=== PATIENT | female | born 1960 | race Caucasian/White ===

== ENCOUNTER → 2016-12-26 | Outpatient (CLI) | payer OTHER ==
[~2016-12-26] MED LIST: ACET-1138 PO; ASPEC81 PO; BTLAI INJ; CLB200 PO; HYDROCHLOROTHIAZIDE PO; MULT-506 PO; PROPRANOLOL PO; RIZA10TA18 PO; RXC5 PO; SIMV20TA2 PO
== END | disposition home or self-care (01) ==
LOC: C.PATHSPEC 17:39
PROVIDERS: ATTEND Orthopaedic Surgery
DX: M12.262 Villonodular synovitis (pigmented), left knee (principal); M23.42 Loose body in knee, left knee

== ENCOUNTER 2019-04-22 08:18 | Inpatient (IN) ==
--- NOTE | 2019-03-23 15:43 | PAT Medication Instructions ---
Medication Instructions Date of Service March 23, 2019 Home Medications acetaminophen [Tylenol Extra Strength] 1,500 mg PO DAILY PRN aspirin [Aspir-81] 81 mg PO QAM ibuprofen 600 mg PO Q6H PRN lisinopril 30 mg PO QAM melatonin 3 mg PO HS multivitamin 1 tab PO QAM omeprazole 20 mg PO QAM onabotulinumtoxinA [Botox] 100 unit IM UD rizatriptan 10 mg PO UD simvastatin 40 mg PO HS Continue as directed onabotulinumtoxinA [Botox] 100 unit IM UD rizatriptan 10 mg PO UD ASK your surgeon for instructions ibuprofen 600 mg PO Q6H PRN DO NOT take the morning of surgery lisinopril 30 mg PO QAM multivitamin 1 tab PO QAM Take morning of surgery With a small sip of water, OTHERWISE NOTHING TO EAT OR DRINK AFTER MIDNIGHT: acetaminophen [Tylenol Extra Strength] 1,500 mg PO DAILY PRN (okay to take up to 4 hours prior to surgery if needed) omeprazole 20 mg PO QAM Take evening before surgery acetaminophen [Tylenol Extra Strength] 1,500 mg PO DAILY PRN (if needed) melatonin 3 mg PO HS simvastatin 40 mg PO HS Other Notes If you have any questions please call us at [phone] or [phone] or [phone] or [phone]
--- NOTE | 2019-03-24 11:54 | Anesthesiology Consultation ---
Date of Service March 24, 2019 Assessment & Plan (1) Encounter for pre-operative examination: Chart Review Chart Review: Pending: Refer to Additional Notes / Consult section (pending preop testing (labs)) and Patient seen in Pre Admission Testing Teaching & Discussion Pre-Anesthesia Teaching/Discussion Notes: Instructed NPO after midnight before surgery,except medications with 15 cc of water. Medication instructions provided according to the PAT guidelines. History Surgery Operation Date: 04/22/19 08:15 Proposed Procedures p Left Total Knee Arthroplasty - Perez Guadalupe MD Height/Weight Height: 5 ft 6.25 in Weight: 102 kg Allergies Allergy/AdvReac Type Severity Reaction Status Date / Time prednisone AdvReac Mild "emotional" Verified 03/19/19 08:35 Medications Home Medications Medication Instructions Recorded Confirmed Last Taken acetaminophen [Tylenol Extra 1,500 mg PO DAILY PRN 03/19/19 03/19/19 Unknown Strength] aspirin [Aspir-81] 81 mg PO QAM 03/19/19 03/19/19 Unknown ibuprofen 600 mg PO Q6H PRN 03/19/19 03/19/19 Unknown lisinopril 30 mg PO QAM 03/19/19 03/19/19 Unknown melatonin 3 mg PO HS 03/19/19 03/19/19 Unknown multivitamin 1 tab PO QAM 03/19/19 03/19/19 Unknown omeprazole 20 mg PO QAM 03/19/19 03/19/19 Unknown onabotulinumtoxinA [Botox] 100 unit IM UD 03/19/19 03/19/19 Unknown rizatriptan 10 mg PO UD 03/19/19 03/19/19 Unknown simvastatin 40 mg PO HS 03/19/19 03/19/19 Unknown Past Medical History Medical History Depression HX GERD (gastroesophageal reflux disease) controlled Hyperlipidemia Hypertension Migraine Neck stiffness Obesity Sleep apnea CPAP Exercise / Class Metabolic Activity III < 4 Walking/Shop/Light housework Past Surgical History Surgical History Heel spur LEFT History of bilateral tubal ligation AND RE-ANASTAMOSIS History of colonoscopy History of hysterectomy History of total knee replacement RIGHT Past Anesthesia History No Hx of Anesthesia Complications (except PONV*) and No Family Hx of Anesthesia Complications History of PONV History of PONV and Hx of Motion Sickness Social History Smoking Status: Never smoker Do You Dip or Chew Tobacco: No Hx Alcohol Use: No Hx Substance Use: Yes Review of Systems Reflux controlled. Patient denies chest pain, shortness of breath, cough, wheezing, palpitations. Physical Exam Vital Signs VITALS BP 148/87 (patient states she did not take BP medication yet today) P 72 TEMP 98.3 SP02 97%RA RESP 20 PHYSICAL Full neck and c-spine range of motion. Full TMJ range of motion. TMD 3.5 finger breaths Mallampati Score 2 Dentition: missing molars, upper front left "filling" ? cap Lungs: clear throughout to auscultation Cardiac: regular rate and rhythm, no murmurs noted Spine: normal Carotid arteries: negative bruit Extremities: no edema Testing Electrocardiogram Date: 09/29/18 NSR at 78bpm. Chest X-Ray Date: 09/29/18 Findings: + NAD Stress Test Date: 09/30/18 Type: DSE DSE negative for ischemia. No EKG changes to suggest ischemia. 112% MPHR. Occasional PAC's/PVC's. No significant valvular disease.
[2019-03-24 12:28] LABS: Appearance Urine Clear (Clear); Bilirubin Urine Negative (Negative); Blood Urine Negative (Negative); Color Urine Yellow; Glucose Urine UA Negative (Negative); Ketones Urine Negative (Negative); Leukocyte Esterase Urine Negative (Negative); Nitrite Urine Negative (Negative); Protein Urine Negative (Negative); Specific Gravity Urine 1.018 (1.000-1.030); Urobilinogen Urine Negative (Negative); pH Urine 6.5 (4.5-7.5)
[2019-03-24 12:28] LABS: Basophils # (auto) 0.03 K/uL (0-0.2); Basophils % (auto) 0.6 %; Eosinophils % (auto) 1.8 %; Hematocrit (blood only) 38.1 % (37-47); Hemoglobin 13.2 g/dL (12.0-16.0); Immature Granulocytes # (auto) 0.02 K/uL (0.00-0.02); Immature Granulocytes % (auto) 0.4 %; Lymphocytes # (auto) 1.96 K/uL (1.2-3.4); Mean Corpuscular Hemoglobin 30.3 pg (25-34); Mean Corpuscular Hgb Conc 34.6 g/dL (32-36); Mean Corpuscular Volume 87.4 fL (80-100); Mean Platelet Volume 9.6 fL (7.4-10.4); Monocytes # (auto) 0.31 K/uL (0.11-0.59); Monocytes % (auto) 5.7 %; Neutrophils # (auto) 3.03 K/uL (1.4-6.5); Neutrophils % (auto) 55.5 %; Platelet Count 256 K/uL (130-400); RDW Standard Deviation 41.7 fL (36.4-46.3); Red Blood Count 4.36 M/uL (4.2-5.4); White Blood Count 5.45 K/uL (4.8-10.8)
[2019-03-24 12:40] LABS: INR 0.9 (0.9-1.1); Partial Thromboplastin Time 27.1 Seconds (21.0-31.0); Prothrombin Time 9.6 Seconds (9.0-12.0)
[2019-03-24 13:04] LABS: Estimated Average Glucose 126 mg/dl
[2019-03-24 14:46] LABS: Albumin Level 3.8 gm/dl (3.4-5.0); BUN Creatinine Ratio 15.8 (10-20); Calcium 8.9 mg/dl (8.5-10.1); Creatinine Clr Calc Pharmacy 78.2 ml/min; Est GFR (African American) 76.5; Potassium 4.2 mmol/L (3.5-5.1)
--- NOTE | 2019-04-09 11:47 | History & Physical Report ---
Date of Service April 09, 2019 Assessment & Plan (1) Primary osteoarthritis of left knee: She has ongoing left knee pain. She has failed conservative measures as above. Treatment options were discussed. Risks, benefits and alternatives to surgery including but not limited to infection, DVT, pain, stiffness, need for revision surgery, damage to blood vessels, damage to nerves, PE, , were discussed with the patient and they wish to proceed. Plan will be for left total knee arthroplasty at [facility] on 04/22/19. Will plan on aspirin 81mg BID x 30 days for DVT prophylaxis. Will plan on home health PT upon discharge from the hospital. All questions answered. F/u post operatively. History of Present Illness Chief Complaint: Left knee pain Primary Care Provider: NO PCP Patient is a 58 year old female with PMHx significant for HTN, high cholesterol, JAMES, GERD with longstanding history of left knee pain. Previously has done well right knee replacement. She has failed conservative measures including cortisone injections, visco injections, NSAIDs. Pain is affecting her daily activity. She would like to proceed with left knee replacement. Patient denies headaches, sweats, fevers, chills, double vision, blurred vision, cough, sore throat, dysphagia, chest pain, sob, wheezing, n/v/d/c, numbness, tingling, fatigue, urinary symptoms, mood disorders. ROS positive for left knee pain and stiffness. Allergies Allergy/AdvReac Type Severity Reaction Status Date / Time prednisone AdvReac Mild "emotional" Verified 03/19/19 08:35 Home Medications Home Medications Medication Instructions Recorded Confirmed Type acetaminophen [Tylenol Extra 1,500 mg PO DAILY PRN 03/19/19 03/19/19 History Strength] aspirin [Aspir-81] 81 mg PO QAM 03/19/19 03/19/19 History ibuprofen 600 mg PO Q6H PRN 03/19/19 03/19/19 History lisinopril 30 mg PO QAM 03/19/19 03/19/19 History melatonin 3 mg PO HS 03/19/19 03/19/19 History multivitamin 1 tab PO QAM 03/19/19 03/19/19 History omeprazole 20 mg PO QAM 03/19/19 03/19/19 History onabotulinumtoxinA [Botox] 100 unit IM UD 03/19/19 03/19/19 History rizatriptan 10 mg PO UD 03/19/19 03/19/19 History simvastatin 40 mg PO HS 03/19/19 03/19/19 History Past Med/Surg History Medical History Depression HX GERD (gastroesophageal reflux disease) controlled Hyperlipidemia Hypertension Migraine Neck stiffness Obesity Sleep apnea CPAP Surgical History Heel spur LEFT History of bilateral tubal ligation AND RE-ANASTAMOSIS History of colonoscopy History of hysterectomy History of total knee replacement RIGHT Social History Preferred Language: Lithuanian Communication Ability: Effective Triage Clinician Required: No Beliefs That Will Affect Care: None Current Living Situation: Spouse Other Information That Helps Us Care for You: No Feels Safe at Home: Yes Safety Concerns: Feels Safe At This Time Smoking Status: Never smoker Do You Dip or Chew Tobacco: No ; Second Hand Exposure: Yes (SPOUSE) ; Hx Alcohol Use: No Hx Substance Use: Yes Review of Systems All systems reviewed & are unremarkable except as noted in HPI & below Physical Exam Constitutional: well developed and well nourished; no acute distress Eyes: PERRL, conjunctivae normal, anicteric sclerae ENMT: external ear and nose normal, oropharynx normal Neck: trachea midline, no thyromegaly Respiratory: normal respiratory effort, lungs clear to auscultation Cardiovascular: RRR, no murmur, no edema Musculoskeletal: Left knee-Tenderness medial joint line, ROM 0-130, mild effusion. Crepitus with ROM. Stable to valgus and varus stress. Positive Danyelle's Skin: no rashes, warm and dry Neurologic: patellar DTR's 2+ bilat, sensation intact Psychiatric: A+Ox3, euthymic affect Results & Data Laboratory Results Lab Results 03/24/19 03/24/19 03/24/19 Range/Units 11:20 11:48 11:48 WBC 5.45 (4.8-10.8) K/uL RBC 4.36 (4.2-5.4) M/uL Hgb 13.2 (12.0-16.0) g/dL Hct 38.1 (37-47) % MCV 87.4 (80-100) fL MCH 30.3 (25-34) pg MCHC 34.6 (32-36) g/dL RDW Std Deviation 41.7 (36.4-46.3) fL RDW Coeff of Migue 13.0 (11.5-14.5) % Plt Count 256 (130-400) K/uL MPV 9.6 (7.4-10.4) fL Immature Gran % (Auto) 0.4 % Neut % (Auto) 55.5 % Lymph % (Auto) 36.0 % [place] % (Auto) 5.7 % Eos % (Auto) 1.8 % Baso % (Auto) 0.6 % Immature Gran # (Auto) 0.02 (0.00-0.02) K/uL Neut # (Auto) 3.03 (1.4-6.5) K/uL Lymph # (Auto) 1.96 (1.2-3.4) K/uL [place] # (Auto) 0.31 (0.11-0.59) K/uL Eos # (Auto) 0.10 (0-0.5) K/uL Baso # (Auto) 0.03 (0-0.2) K/uL PT 9.6 (9.0-12.0) Seconds INR 0.9 (0.9-1.1) APTT 27.1 (21.0-31.0) Seconds PTT Ratio 1.0 Sodium (136-145) mmol/L Potassium (3.5-5.1) mmol/L Chloride (98-107) mmol/L Carbon Dioxide (21-32) mmol/L Anion Gap (3-11) BUN (7-18) mg/dl Creatinine (0.6-1.2) mg/dl Est Cr Clr Drug Dosing ml/min Est GFR ( Amer) Est GFR (Non-Af Amer) BUN/Creatinine Ratio (10-20) Glucose (70-99) mg/dl Estimat Average Glucose mg/dl Hemoglobin A1c (4.5-5.6) % Calcium (8.5-10.1) mg/dl Albumin (3.4-5.0) gm/dl Urine Color Yellow Urine Appearance Clear (Clear) Urine pH 6.5 (4.5-7.5) Ur Specific [place] 1.018 (1.000-1.030) Urine Protein Negative (Negative) Urine Glucose (UA) Negative (Negative) Urine Ketones Negative (Negative) Urine Blood Negative (Negative) Urine Nitrite Negative (Negative) Urine Bilirubin Negative (Negative) Urine Urobilinogen Negative (Negative) Ur Leukocyte Esterase Negative (Negative) Blood Type Antibody Screen 03/24/19 03/24/19 03/24/19 Range/Units 11:48 11:48 11:48 WBC (4.8-10.8) K/uL RBC (4.2-5.4) M/uL Hgb (12.0-16.0) g/dL Hct (37-47) % MCV (80-100) fL MCH (25-34) pg MCHC (32-36) g/dL RDW Std Deviation (36.4-46.3) fL RDW Coeff of Migue (11.5-14.5) % Plt Count (130-400) K/uL MPV (7.4-10.4) fL Immature Gran % (Auto) % Neut % (Auto) % Lymph % (Auto) % [place] % (Auto) % Eos % (Auto) % Baso % (Auto) % Immature Gran # (Auto) (0.00-0.02) K/uL Neut # (Auto) (1.4-6.5) K/uL Lymph # (Auto) (1.2-3.4) K/uL [place] # (Auto) (0.11-0.59) K/uL Eos # (Auto) (0-0.5) K/uL Baso # (Auto) (0-0.2) K/uL PT (9.0-12.0) Seconds INR (0.9-1.1) APTT (21.0-31.0) Seconds PTT Ratio Sodium 139 (136-145) mmol/L Potassium 4.2 (3.5-5.1) mmol/L Chloride 104 (98-107) mmol/L Carbon Dioxide 28 (21-32) mmol/L Anion Gap 7.0 (3-11) BUN 15 (7-18) mg/dl Creatinine 0.95 (0.6-1.2) mg/dl Est Cr Clr Drug Dosing 78.2 ml/min Est GFR ( Amer) 76.5 Est GFR (Non-Af Amer) 66.0 BUN/Creatinine Ratio 15.8 (10-20) Glucose 132 H (70-99) mg/dl Estimat Average Glucose 126 mg/dl Hemoglobin A1c 6.0 H (4.5-5.6) % Calcium 8.9 (8.5-10.1) mg/dl Albumin 3.8 (3.4-5.0) gm/dl Urine Color Urine Appearance (Clear) Urine pH (4.5-7.5) Ur Specific [place] (1.000-1.030) Urine Protein (Negative) Urine Glucose (UA) (Negative) Urine Ketones (Negative) Urine Blood (Negative) Urine Nitrite (Negative) Urine Bilirubin (Negative) Urine Urobilinogen (Negative) Ur Leukocyte Esterase (Negative) Blood Type O Positive Antibody Screen NEGATIVE Diagnostic Findings Left knee radiographs: [id number] medial compartment with periarticular osteophyte formation and subchondral sclerosis
[~2019-04-22 08:18] MED LIST changes: -ACET-1138 PO; +ACETAMINOPHEN 500 MG TAB PO SCH; -ASPEC81 PO; -BTLAI INJ; +BUPIVACAINE 0.5 % 5 MG/1 ML PF 10ML VIAL ONE; +CEFAZOLIN 2000MG 2,000 MG/15 ML SYR IV SCH; -CLB200 PO; +CeleBREX 200 MG CAP PO SCH; +FAMOTIDINE 20 MG TAB PO SCH; +GABAPENTIN 600 MG DOSE PO SCH; -HYDROCHLOROTHIAZIDE PO; +LR 500ML BOLUS, THEN 15ML/HR IV SCH; +METOCLOPRAMIDE HCL 10 MG TABLET PO SCH; -MULT-506 PO; +OXYCODONE HCL 10 MG TABCR (OXYCONTIN) PO SCH; -PROPRANOLOL PO; -RIZA10TA18 PO; +ROPIVACAINE 0.5% HCL/PF 150 MG, BUPIVACAINE 0.5% MPF 30 ML, EPINEPHrine 30MG/30ML (OR U... INFIL SCH; +ROPIVACAINE 0.5% HCL/PF 150 MG, BUPIVACAINE 0.5% MPF 30 ML, EPINEPHrine 30MG/30ML (OR U... INSTIL SCH; -RXC5 PO; -SIMV20TA2 PO; +TRANEXAMIC ACID 1,000 MG **IV Intra-op IV SCH; +TRANEXAMIC ACID 1,000 MG **IV Pre-op IV SCH; +dexAMETHasone 4 MG TAB PO SCH
[2019-04-22] MEDS ORDERED: fentaNYL citrate 100 MCG/2 ML VIAL ONE ×2 (09:27→11:27)
[2019-04-22] MEDS ORDERED: MIDAZOLAM HCL 1 MG/ML 2ML VIAL ONE (09:27)
--- NOTE | 2019-04-22 09:35 | History & Physical Bridge Note ---
Date of Service April 22, 2019 History & Physical Bridge Note I have examined the patient, reviewed the History & Physical and in the interval since the performance of the History & Physical I have noted the following changes of clinical significance: no changes noted
[2019-04-22] MEDS ORDERED: fentaNYL citrate 100 MCG/2 ML VIAL IV PRN (09:53)
[2019-04-22] MEDS ORDERED: ONDANSETRON INJ 2 MG/ML 2 ML VIAL IV PRN ×2 (09:53→13:53)
[2019-04-22] MEDS ORDERED: ATROPINE SULFATE 0.1 MG/ML 10ML SYR IV PRN (09:53)
[2019-04-22] MEDS ORDERED: ePHEDrine sulfate 50 MG/ML AMP IV PRN (09:53)
[2019-04-22] MEDS ORDERED: PROPOFOL IV EMULSION 10 MG/ML 20 ML VIAL IV ONE (10:04)
[2019-04-22] MEDS ORDERED: BACITRACIN INJ 50,000 UNIT VIAL ONE (10:28)
--- NOTE | 2019-04-22 12:16 | Operative Report ---
Post Operative Report Pre & Post Diagnosis Operation Date: 04/22/19 10:55 Pre-Op Diagnosis: Osteoarthritis, Left Knee Post-Op Diagnosis: Osteoarthritis, Left Knee I identified the patient and participated in the time-out.: Yes Procedure Operation Date: 04/22/19 10:55 Actual Procedures p Left Total Knee Arthroplasty(Left) - Perez Guadalupe MD Surgeon Perez Guadalupe MD Manager Spring Brayan Parrish PA-C Estimated Blood Loss 20 Findings Consistent with Post-Op Diagnosis Specimens bone and tissue Drains 2 hemovac Anesthesia Type MAC Spinal Regional Complications none Disposition Accompanied Patient To Recovery: No Disposition: Recovery Room Indications The patient is a 58-year-old female with long-standing arthritic change in the left knee. She has failed conservative measures including injection, anti- inflammatories and rehab. She is [id number] medial compartment osteophyte formation of the and from chronic medial tibial plateau. She would like to proceed with total knee replacement. Description of Procedure Risks benefits and alternatives of surgery including but not limited to infection, DVT, pain, stiffness, need for surgery, damage to blood vessels, damage to nerves or risks of anesthesia were discussed with the patient and they wished to proceed. The patient was identified and the laterality was confirmed and marked. They received a preoperative antibiotic as well as a spinal anesthetic and an abductor canal block. A well-padded tourniquet was applied and then the limb was prepped and draped in standard manner with ChloraPrep. The limb was exsanguinated and the tourniquet was inflated. I made a standard anterior incision. I sharply incised the skin then utilized Bovie electrocautery to achieve hemostasis. I made a medial parapatellar arthrotomy and mobilized the patella laterally. I then excised the anterior horns of the medial and lateral meniscus as well as the infrapatellar fat pad. I elevated a portion of the MCL off of the tibia. I then pinned into place a patient-matched distal femoral cutting guide and made my distal femoral resection. I then pinned into place the 5 in 1 femoral cutting guide. I made my anterior, posterior and chamfer cuts. I then excised the cruciates and the remaining portions of the menisci. I then pinned into place a patient- matched tibial cutting guide and made my tibial resection. I then pinned into place the tibial plate a utilizing alignment jon to confirm rotation. I then cut for the post. Utilizing a lamina house visitor and I then removed posterior osteophytes off the femur. I then placed a trial femur into position and cut for the trochlear component. She had significant imbalance being tight on the medial side. I needed to release a portion of the deep MCL. I then sequentially trialed to size the polyethylene until there was good soft tissue balancing and range of motion. I then prepared the patella with a freehand cut utilizing sagittal saw. I sized and drilled for the patella. There was some lateral tracking of the patella a lateral release was required All the trial components were removed. The deep tissues were anesthetized with an ortho mix solution. Then with Simplex HV with gentamicin cement, I cemented my definitive components. Definitive components, Lay and Nephew Irene 2: Femur 5 Tibia 3 Poly 10 Patella 29 oval A betadine soak was performed. A deep drain was placed. The arthrotomy was closed with interrupted #1 Vicryl suture subcutaneous tissue was closed with interrupted 2-0 Vicryl suture. The skin was closed with with kamlesh. An Acticoat and Faith dressing were placed. Sterile dressings were applied. All needle and sponge counts were correct at the end of the procedure patient was transferred to the PACU in stable condition without apparent complication. The PA-C was necessary for assistance with procedure for assistance in posit ioning, prepping, draping, retraction and closure. I attest to the content of the Intraoperative Record and any orders documented therein. Any exceptions are noted below.
--- NOTE | 2019-04-22 13:24 | Anesthesiology Progress Note ---
Date of Service April 22, 2019 Anesthesia Post Procedure Vital Signs Vital Signs: Temp Pulse Pulse Resp BP Pulse Ox 04/22/19 13:15 77 16 124/73 96 04/22/19 13:05 80 16 103/72 98 04/22/19 12:59 99.0 F 86 16 107/61 98 04/22/19 09:23 97.9 F 76 20 168/87 H 96 Transfer of Care Handoff Completed per policy Notes Mental Status: alert / awake / arousable and participated in evaluation Patient Amnestic to Procedure: Yes Nausea / Vomiting: adequately controlled Pain: adequately controlled Airway Patency, RR, SpO2: stable & adequate BP & HR: stable & adequate Hydration State: stable & adequate Neuraxial Anesthesia: was administered and sensory block is resolving Anesthetic Complications: no major complications apparent and Pt Satisfied with anesthetic care
--- NOTE | 2019-04-22 13:25 | XRay Report ---
XR knee LT 1 or 2V routine HISTORY: 58 years-old Female Surgical Post Op left knee total joint arthroplasty. History of degener ative joint disease COMPARISON: None available TECHNIQUE: 2 views of the left knee FINDINGS: Left knee total joint arthroplasty and patella resurfacing demonstrates satisfactory alignment withou t acute fracture. Anterior midline skin kamlesh are noted along with expected postsurgical soft tissu e swelling and deep tissue air. Surgical drainage catheter noted. IMPRESSION: Satisfactory positioning of the left knee total joint arthroplasty. The above report was generated using voice recognition software. It may contain grammatical, syntax o r spelling errors. Electronically signed by: Chon Jaramillo M.D. 04/22/2019 1:23 PM
[2019-04-22] MEDS ORDERED: HYDROmorphone INJ 0.5 MG/0.5 ML SYR IV PRN (13:53)
[2019-04-22] MEDS ORDERED: RIZATRIPTAN BENZOATE 10 MG TAB PO PRN (13:53)
[2019-04-22] MEDS ORDERED: bisacodyL 10 MG SUPP PR PRN (13:53)
[2019-04-22] MEDS ORDERED: METOCLOPRAMIDE HCL INJ 5 MG/ML 2 ML VIAL IV PRN (13:53)
[2019-04-22] MEDS ORDERED: MAGNESIUM HYDROXIDE SUSP 30 ML UDC PO PRN (13:53)
[2019-04-22] MEDS ORDERED: NALOXONE HCL 0.4 MG/1 ML VIAL/CARP IV PRN (13:53)
[2019-04-22] MEDS ORDERED: ONDANSETRON INJ 2 MG/ML 2 ML VIAL ONE (14:05)
[2019-04-22] MEDS: SODIUM CHLORIDE 0.9% 1000ML 1,000 ML IV SCH (14:26)
[2019-04-22] MEDS: ACETAMINOPHEN 500 MG TAB PO SCH ×2 (14:28→21:42)
[2019-04-22] MEDS: MISSING PHYSICIAN SIGNATURE ON ORDER SCH ×4 (15:38→15:49)
[2019-04-22] MEDS: CEFAZOLIN 2000MG 2,000 MG/15 ML SYR IV SCH (18:12)
[2019-04-22] MEDS: SIMVASTATIN 40 MG TAB PO SCH (20:54)
[2019-04-22] MEDS: DOCUSATE SODIUM 100 MG CAP PO SCH (20:54)
[2019-04-22] MEDS: SENNA 8.6 MG TAB PO SCH (20:54)
[2019-04-22] MEDS: CeleBREX 200 MG CAP PO SCH (20:54)
[2019-04-22] MEDS: ASPIRIN 81 MG ECTAB PO SCH (20:55)
[2019-04-23] MEDS: CEFAZOLIN 2000MG 2,000 MG/15 ML SYR IV SCH (01:24)
[2019-04-23] MEDS: SODIUM CHLORIDE 0.9% 1000ML 1,000 ML IV SCH (01:36)
[2019-04-23 05:14] LABS: Hematocrit (blood only) 34.6 % (37-47); Hemoglobin 11.9 g/dL (12.0-16.0); Mean Corpuscular Hemoglobin 29.8 pg (25-34); Mean Corpuscular Hgb Conc 34.4 g/dL (32-36); Mean Corpuscular Volume 86.7 fL (80-100); Mean Platelet Volume 9.4 fL (7.4-10.4); Platelet Count 266 K/uL (130-400); RDW Coefficient of Variation 12.6 % (11.5-14.5); RDW Standard Deviation 40.6 fL (36.4-46.3); Red Blood Count 3.99 M/uL (4.2-5.4); White Blood Count 15.12 K/uL (4.8-10.8)
[2019-04-23] MEDS: ACETAMINOPHEN 500 MG TAB PO SCH ×3 (05:30→22:05)
[2019-04-23 05:37] LABS: Creatinine Clr Calc Pharmacy 75.7 ml/min; Est GFR (African American) 74.6; Est GFR (Non-African American) 64.4; Potassium 4.3 mmol/L (3.5-5.1)
--- NOTE | 2019-04-23 07:14 | Orthopedic Progress Note ---
Date of Service April 23, 2019 Assessment & Plan (1) Status post left knee replacement: POD#1 Left TKA -PT/OT -Pain management -DVT prophylaxis-ASA 81mg BID, SCDs, Aria -D/C planning-home with home health PT when stable. Possibly today if HH can remove drain and PT goes well. AM labs- hemoglobin at 11.9 this AM Subjective Patient is POD#1 left TKA. She is doing well, pain well controlled. Nausea from yesterday has resolved. No current complaints. Denies chest pain, sob, dizziness, headaches, n/v/d. Review of Systems Review of Systems: All systems reviewed & are unremarkable except as noted in HPI & below Physical Exam Physical Exam: Left knee dressing is c/d/i, toes mobile, good dorsiflexion, sensation and n/v status intact. Hemovac and Faith in place Results & Data Vital Signs (Past 12 Hours) Vital Signs Temp Pulse Pulse Resp BP Pulse Ox 04/23/19 07:07 36.5 C 71 18 130/79 95 04/23/19 03:45 36.5 C 69 16 110/67 93 04/22/19 23:18 36.4 C L 71 16 124/74 92 04/22/19 19:19 36.3 C L 70 17 130/78 96 Laboratory Results H & H 03/24/19 04/23/19 Range/Units 11:48 04:50 Hgb 13.2 11.9 L (12.0-16.0) g/dL Hct 38.1 34.6 L (37-47) % Coagulation 03/24/19 Range/Units 11:48 INR 0.9 (0.9-1.1)
[2019-04-23] MEDS: OXYCODONE HCL IR 5 MG TAB (IMMEDIATE RELEASE) PO PRN ×3 (08:43→20:31)
[2019-04-23] MEDS: ASPIRIN 81 MG ECTAB PO SCH ×2 (08:43→20:29)
[2019-04-23] MEDS: CeleBREX 200 MG CAP PO SCH ×2 (08:44→20:30)
[2019-04-23] MEDS: MULTIVITAMIN TAB PO SCH (08:44)
[2019-04-23] MEDS: DOCUSATE SODIUM 100 MG CAP PO SCH ×2 (08:44→20:29)
[2019-04-23] MEDS: lisinopriL 10 MG TAB PO SCH (08:44)
[2019-04-23] MEDS: PANTOprazole 40 MG TAB PO SCH (08:44)
[2019-04-23] MEDS ORDERED: MULTIVITAMIN TAB PO SCH (09:00)
[2019-04-23] MEDS: SENNA 8.6 MG TAB PO SCH (20:29)
[2019-04-23] MEDS: SIMVASTATIN 40 MG TAB PO SCH (20:30)
[2019-04-24] MEDS: ACETAMINOPHEN 500 MG TAB PO SCH (05:08)
--- NOTE | 2019-04-24 07:56 | Orthopedic Progress Note ---
Date of Service April 24, 2019 Assessment & Plan (1) Status post left knee replacement: POD#2 Left TKA -PT/OT -Pain management -DVT prophylaxis-ASA 81mg BID, SCDs, Aria -D/C planning-home with home health PT when stable, likely later today. Subjective Patient is POD#2 left TKA. She is doing well, pain well controlled. No current complaints. Denies chest pain, sob, dizziness, headaches, n/v/d. Review of Systems Review of Systems: All systems reviewed & are unremarkable except as noted in HPI & below Physical Exam Physical Exam: Left knee dressing is c/d/i, toes mobile, good dorsiflexion, sensation and n/v status intact. Faith in place. Dressing at old hemovac site i ntact. Constitutional: well developed and well nourished; no acute distress Results & Data Vital Signs (Past 12 Hours) Vital Signs Temp Pulse Resp BP Pulse Ox 04/24/19 07:18 36.6 C 71 16 120/76 95 04/23/19 23:18 36.7 C 75 16 131/70 92
[2019-04-24] MEDS: CeleBREX 200 MG CAP PO SCH (08:23)
[2019-04-24] MEDS: lisinopriL 10 MG TAB PO SCH (08:23)
[2019-04-24] MEDS: ASPIRIN 81 MG ECTAB PO SCH (08:23)
[2019-04-24] MEDS: DOCUSATE SODIUM 100 MG CAP PO SCH (08:23)
[2019-04-24] MEDS: MULTIVITAMIN TAB PO SCH (08:23)
[2019-04-24] MEDS: PANTOprazole 40 MG TAB PO SCH (08:23)
[2019-04-24] MEDS: OXYCODONE HCL IR 5 MG TAB (IMMEDIATE RELEASE) PO PRN (10:28)
--- NOTE | 2019-04-25 13:00 | Discharge Summary ---
Date of Service April 25, 2019 Admission HPI Per Admitting Provider Patient is a 58 year old female with PMHx significant for HTN, high cholesterol, JAMES, GERD with longstanding history of left knee pain. Previously has done well right knee replacement. She has failed conservative measures including cortisone injections, visco injections, NSAIDs. Pain is affecting her daily activity. She would like to proceed with left knee replacement. Patient denies headaches, sweats, fevers, chills, double vision, blurred vision, cough, sore throat, dysphagia, chest pain, sob, wheezing, n/v/d/c, numbness, tingling, fatigue, urinary symptoms, mood disorders. ROS positive for left knee pain and stiffness. Admission Exam Per Admitting Provider Constitutional: well developed and well nourished; no acute distress Eyes: PERRL, conjunctivae normal, anicteric sclerae ENMT: external ear and nose normal, oropharynx normal Neck: trachea midline, no thyromegaly Respiratory: normal respiratory effort, lungs clear to auscultation Cardiovascular: RRR, no murmur, no edema Musculoskeletal: Left knee-Tenderness medial joint line, ROM 0-130, mild effusion. Crepitus with ROM. Stable to valgus and varus stress. Positive Danyelle's Skin: no rashes, warm and dry Neurologic: patellar DTR's 2+ bilat, sensation intact Psychiatric: A+Ox3, euthymic affect Principal Diagnosis Left knee osteoarthritis Discharge Exam Constitutional well developed and well nourished; no acute distress Eyes PERRL, conjunctivae normal, anicteric sclerae ENMT external ear and nose normal, oropharynx normal Neck trachea midline, no thyromegaly Respiratory normal respiratory effort, lungs clear to auscultation Cardiovascular RRR, no murmur, no edema Skin no rashes, warm and dry Neurologic patellar DTR's 2+ bilat, sensation intact Psychiatric A+Ox3, euthymic affect Discharge Data Allergies Allergy/AdvReac Type Severity Reaction Status Date / Time prednisone AdvReac Mild "emotional" Verified 04/22/19 09:11 Consultations 04/22/19 13:53 Consult Case Management - Discharge Planning Routine Procedures Performed Operation Date: 04/22/19 10:55 Actual Procedures p Left Total Knee Arthroplasty(Left) - Perez Guadalupe MD Ordered Studies 04/22/19 05:00 US - OR guided needle placemen Routine Hospital Course (1) Status post left knee replacement: Patient presented for same day admission following left total knee arthroplasty on 04/22/19. She tolerated procedure well. The Patient had an uneventful hospital course. Post-operatively, her activity was progressed and well tolerated. They participated in PT with ambulation distance of 315 feet. ROM of operative knee reached 95 degrees. Labs remained stable- lowest hemoglo bin recorded: 11.9. Pain controlled on oral medications. Please refer to daily progress notes and PT notes for complete details. After exam on 04/24/19, patient was felt to be stable for discharge home with home health PT. Patient will f/u in the office in about 2 weeks for further evaluation including x-rays and incision check, sooner if having any issues or concerns. Lab Results 03/24/19 03/24/19 03/24/19 Range/Units 11:20 11:48 11:48 WBC 5.45 (4.8-10.8) K/uL RBC 4.36 (4.2-5.4) M/uL Hgb 13.2 (12.0-16.0) g/dL Hct 38.1 (37-47) % MCV 87.4 (80-100) fL MCH 30.3 (25-34) pg MCHC 34.6 (32-36) g/dL RDW Std Deviation 41.7 (36.4-46.3) fL RDW Coeff of Migue 13.0 (11.5-14.5) % Plt Count 256 (130-400) K/uL MPV 9.6 (7.4-10.4) fL Immature Gran % (Auto) 0.4 % Neut % (Auto) 55.5 % Lymph % (Auto) 36.0 % Charles % (Auto) 5.7 % Eos % (Auto) 1.8 % Baso % (Auto) 0.6 % Immature Gran # (Auto) 0.02 (0.00-0.02) K/uL Neut # (Auto) 3.03 (1.4-6.5) K/uL Lymph # (Auto) 1.96 (1.2-3.4) K/uL Charles # (Auto) 0.31 (0.11-0.59) K/uL Eos # (Auto) 0.10 (0-0.5) K/uL Baso # (Auto) 0.03 (0-0.2) K/uL PT 9.6 (9.0-12.0) Seconds INR 0.9 (0.9-1.1) APTT 27.1 (21.0-31.0) Seconds PTT Ratio 1.0 Sodium (136-145) mmol/L Potassium (3.5-5.1) mmol/L Chloride (98-107) mmol/L Carbon Dioxide (21-32) mmol/L Anion Gap (3-11) BUN (7-18) mg/dl Creatinine (0.6-1.2) mg/dl Est Cr Clr Drug Dosing ml/min Est GFR ( Amer) Est GFR (Non-Af Amer) BUN/Creatinine Ratio (10-20) Glucose (70-99) mg/dl Estimat Average Glucose mg/dl Hemoglobin A1c (4.5-5.6) % Calcium (8.5-10.1) mg/dl Albumin (3.4-5.0) gm/dl Urine Color Yellow Urine Appearance Clear (Clear) Urine pH 6.5 (4.5-7.5) Ur Specific [place] 1.018 (1.000-1.030) Urine Protein Negative (Negative) Urine Glucose (UA) Negative (Negative) Urine Ketones Negative (Negative) Urine Blood Negative (Negative) Urine Nitrite Negative (Negative) Urine Bilirubin Negative (Negative) Urine Urobilinogen Negative (Negative) Ur Leukocyte Esterase Negative (Negative) Blood Type Antibody Screen 03/24/19 03/24/19 03/24/19 Range/Units 11:48 11:48 11:48 WBC (4.8-10.8) K/uL RBC (4.2-5.4) M/uL Hgb (12.0-16.0) g/dL Hct (37-47) % MCV (80-100) fL MCH (25-34) pg MCHC (32-36) g/dL RDW Std Deviation (36.4-46.3) fL RDW Coeff of Migue (11.5-14.5) % Plt Count (130-400) K/uL MPV (7.4-10.4) fL Immature Gran % (Auto) % Neut % (Auto) % Lymph % (Auto) % Charles % (Auto) % Eos % (Auto) % Baso % (Auto) % Immature Gran # (Auto) (0.00-0.02) K/uL Neut # (Auto) (1.4-6.5) K/uL Lymph # (Auto) (1.2-3.4) K/uL Charles # (Auto) (0.11-0.59) K/uL Eos # (Auto) (0-0.5) K/uL Baso # (Auto) (0-0.2) K/uL PT (9.0-12.0) Seconds INR (0.9-1.1) APTT (21.0-31.0) Seconds PTT Ratio Sodium 139 (136-145) mmol/L Potassium 4.2 (3.5-5.1) mmol/L Chloride 104 (98-107) mmol/L Carbon Dioxide 28 (21-32) mmol/L Anion Gap 7.0 (3-11) BUN 15 (7-18) mg/dl Creatinine 0.95 (0.6-1.2) mg/dl Est Cr Clr Drug Dosing 78.2 ml/min Est GFR ( Amer) 76.5 Est GFR (Non-Af Amer) 66.0 BUN/Creatinine Ratio 15.8 (10-20) Glucose 132 H (70-99) mg/dl Estimat Average Glucose 126 mg/dl Hemoglobin A1c 6.0 H (4.5-5.6) % Calcium 8.9 (8.5-10.1) mg/dl Albumin 3.8 (3.4-5.0) gm/dl Urine Color Urine Appearance (Clear) Urine pH (4.5-7.5) Ur Specific [place] (1.000-1.030) Urine Protein (Negative) Urine Glucose (UA) (Negative) Urine Ketones (Negative) Urine Blood (Negative) Urine Nitrite (Negative) Urine Bilirubin (Negative) Urine Urobilinogen (Negative) Ur Leukocyte Esterase (Negative) Blood Type O Positive Antibody Screen NEGATIVE 04/23/19 04/23/19 Range/Units 04:50 04:50 WBC 15.12 H (4.8-10.8) K/uL RBC 3.99 L (4.2-5.4) M/uL Hgb 11.9 L (12.0-16.0) g/dL Hct 34.6 L (37-47) % MCV 86.7 (80-100) fL MCH 29.8 (25-34) pg MCHC 34.4 (32-36) g/dL RDW Std Deviation 40.6 (36.4-46.3) fL RDW Coeff of Migue 12.6 (11.5-14.5) % Plt Count 266 (130-400) K/uL MPV 9.4 (7.4-10.4) fL Immature Gran % (Auto) % Neut % (Auto) % Lymph % (Auto) % Charles % (Auto) % Eos % (Auto) % Baso % (Auto) % Immature Gran # (Auto) (0.00-0.02) K/uL Neut # (Auto) (1.4-6.5) K/uL Lymph # (Auto) (1.2-3.4) K/uL Charles # (Auto) (0.11-0.59) K/uL Eos # (Auto) (0-0.5) K/uL Baso # (Auto) (0-0.2) K/uL PT (9.0-12.0) Seconds INR (0.9-1.1) APTT (21.0-31.0) Seconds PTT Ratio Sodium 138 (136-145) mmol/L Potassium 4.3 (3.5-5.1) mmol/L Chloride 105 (98-107) mmol/L Carbon Dioxide 25 (21-32) mmol/L Anion Gap 8.0 (3-11) BUN 15 (7-18) mg/dl Creatinine 0.97 (0.6-1.2) mg/dl Est Cr Clr Drug Dosing 75.7 ml/min Est GFR ( Amer) 74.6 Est GFR (Non-Af Amer) 64.4 BUN/Creatinine Ratio 16.0 (10-20) Glucose 133 H (70-99) mg/dl Estimat Average Glucose mg/dl Hemoglobin A1c (4.5-5.6) % Calcium 9.0 (8.5-10.1) mg/dl Albumin (3.4-5.0) gm/dl Urine Color Urine Appearance (Clear) Urine pH (4.5-7.5) Ur Specific [place] (1.000-1.030) Urine Protein (Negative) Urine Glucose (UA) (Negative) Urine Ketones (Negative) Urine Blood (Negative) Urine Nitrite (Negative) Urine Bilirubin (Negative) Urine Urobilinogen (Negative) Ur Leukocyte Esterase (Negative) Blood Type Antibody Screen Total Time Total Time Spent Total Time Spent (In Minutes): 20 Discharge Plan Discharge Items Patient Disposition: Home - Home Health Services Reason For Visit: Osteoarthritis, Left Knee Discharge Diagnosis: Left knee osteoarthritis Activity: Per Instructions section Non-emergency contact: Surgeon Call non-emergency contact if: you have any medication questions, your pain is not controlled, your pain is concerning for you, you have a fever, your temperature is above 101, your wound has increased redness and your wound has increased drainage Follow-up/Referrals: Grover Wiley MD [Primary Care Provider] - Diet: Regular Addtl Attending Provider Instructions: ACTIVITY RECOMMENDATIONS: SELF CARE INSTRUCTIONS AFTER TOTAL KNEE REPLACEMENT A. You may need to continue a physical therapy program after discharge from the hospital. There are several options available to you. Your doctor will assist you in selecting the best one for you. 1. An out-patient facility 2 to 3 times a week for therapy or home therapy. 2. Continue working on all exercises taught to you in the hospital. Your goals should be to increase bending of your knee to 90 degrees and beyond and to fully straighten your knee. B. You may progress at your own pace from walking with a walker or crutches to a cane; then to no assistive devices. C. Make walking a part of your daily routine. Be up as much as comfortable with rest periods throughout the day. Rest with leg elevation is very important. Use the ice wrap frequently for the first 3-4 weeks. D. There are no restrictions on activities. You may ride in a car, shop, participate in car shagger and all social activities. E. Wear the long elastic stockings (MEGAN hose) 20 hours a day for 2 weeks after surgery. They can be removed several times a day for laundering and for a bath. F. You may shower, no tub baths until cleared by your doctor. SPECIAL CARE INSTRUCTIONS: VERY IMPORTANT TO READ AND REVIEW A. There are a few signs you need to watch for after you are home. Call [facility] if you notice any of the followin. Increased severe knee pain. Some pain is expected especially when you exercise. 2. Increased swelling in your leg or knee; pain or swelling of the calf muscle in either lower leg. 3. Any fluid drainage from the incision. 4. Shortness of breath or chest pain. B. Please call [facility] at if you have any concerns or questions about your operation or recovery. The doctor or his nurse will return your call promptly. C. You must take antibiotics before dental work, bladder, bowel or other surgery. Your doctor will provide you with a permanent care to carry describing this precaution. IMPORTANT: * REMEMBER TO TAKE ASPIRIN, 81 MG, TWICE DAILY FOR 4 WEEKS UNLESS OTHERWISE DIRECTED. THIS IS YOUR BLOOD THINNER. * HIGH RISK PATIENTS MAY BE PRESCRIBED A STRONGER BLOOD THINNER. THIS WILL BE PROVIDED AT DISCHARGE. * CALL IF INCREASED PAIN, REDNESS, DRAINAGE OR FEVER GREATER THAT 101. * WEAR MEGAN HOSE 20 HOURS PER DAY FOR 2 WEEKS. This is a large suction dressing covering your incision. This will help pull any excess drainage from the wound and allow your incision to heal properly. You may shower with this if you can keep the unit outside of the shower. If any bleeding or leakage is noted please call your doctor's office. This will remain on your incision for 7 days and then should be removed. This can be done yourself or by the home nursing staff if applicable. The entire unit is disposable once removed. Once removed, keep incision clean and dry. If redness or drainage is noted, please call your surgeon. FOLLOW UP VISIT: If appointment is not already scheduled: Please call [facility] to make a follow-up appointment for 2 weeks after your surgery at . Pending Studies at Discharge: No Stand-Alone Forms: My [facility] [employer], Opioid Pain Management, Smoking Cessation Medications and DC Order Prescriptions: New oxycodone 5 mg tablet 5 mg PO Q4H MDD 6 PRN (Reason: pain) Qty: 30 RF: 0 celecoxib [Celebrex] 200 mg Capsule 200 mg PO BID Qty: 60 RF: 0 aspirin [Ecotrin Low Strength] 81 mg Tablet,Delayed Release (Dr/Ec) 81 mg PO BID Qty: 60 RF: 0 acetaminophen [Tylenol Extra Strength] 500 mg Tablet 1,000 mg PO Q8 Qty: 60 RF: 0 Continued multivitamin Tablet 1 tab PO QAM RF: 0 simvastatin 40 mg Tablet 40 mg PO HS RF: 0 lisinopril 30 mg Tablet 30 mg PO QAM RF: 0 omeprazole 20 mg Capsule,Delayed Release(Dr/Ec) 20 mg PO QAM RF: 0 melatonin 3 mg Capsule 3 mg PO HS RF: 0 rizatriptan 10 mg Tablet 10 mg PO UD RF: 0 Botox 100 unit Recon Soln 100 unit IM UD RF: 0 Discontinued ibuprofen 200 mg Capsule 600 mg PO Q6H PRN (Reason: Pain) RF: 0 aspirin [Aspir-81] 81 mg Tablet,Delayed Release (Dr/Ec) 81 mg PO QAM RF: 0 acetaminophen [Tylenol Extra Strength] 500 mg Tablet 1,500 mg PO DAILY PRN (Reason: Pain) RF: 0 Discharge Orders: Discharge Order (Routine); Ordered 04/24/19 Ordered By: Brayan Hsu/Other Patient Handouts: ED Stockings Megan Admission Data Admit Date/Time: 04/22/19 13:53 Attending Provider: Perez Guadalupe Admit Provider: Perez Guadalupe Primary Care Provider: Grover Wiley Other Interventions: Discharge Summary Assessment (RN) Last Done: 04/24/19 09:54 DC Date/Time DO NOT enter until pt leaves facility: 04/24/19 11:17
[2019-05-12] MEDS ORDERED: BOTULINUM TOXIN TYPE A 100 UNIT VIAL IM SCH (09:00)
== END 2019-04-24 11:17 | disposition home health service (06) | DRG 470 ==
LOC: ASU 08:18 → 3E 13:53